=== PATIENT | female | born 1950 | race Caucasian/White ===

== ENCOUNTER 2017-03-30 19:35 | Observation (INO) | payer OTHER ==
[~2017-03-30] VITALS: Ht 162.6 cm; Wt 84.5 kg
[2017-03-30] MEDS ORDERED: SILVER NITR/POTASSIUM NITRATE APPLICATORS TOPICAL ONE (20:00)
[2017-03-30] MEDS ORDERED: OXYMETAZOLINE HCL 0.05% 15 ML NASAL SPRAY NASAL ONE (20:00)
[2017-03-30 20:21] LABS: HEMATOCRIT 32.3 % (35.0-46.0); MEAN CELL VOLUME 84.9 FL (80.0-100.0); MEAN CORPUSCULAR HEMOGLOBIN 28.6 PG (27.0-34.0); MEAN CORPUSCULAR HGB CONC 33.7 % (32.0-36.0); PLATELET COUNT 269 TH/MM3 (150-450); RED CELL DISTRIBUTION WIDTH 14.1 % (11.6-17.2); WHITE BLOOD COUNT 10.4 TH/MM3 (4.0-11.0)
[2017-03-30 20:22] LABS: HEMO FLAGS AUTO DIFF
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
[2017-03-30 20:28] LABS: POTASSIUM 3.7 MEQ/L (3.5-5.1)
[2017-03-30 20:33] LABS: BICARBONATE 23.6 MEQ/L (21.0-32.0)
[2017-03-30 20:39] LABS: APTT (PATIENT) 46.7 SEC (24.3-30.1)
[2017-03-30 20:40] LABS: INTERNATIONAL NORMALIZED RATIO 2.3 RATIO; PROTHROMBIN TIME - PATIENT 25.9 SEC (9.8-11.6)
[2017-03-30 20:44] LABS: BANDS 1 % (0-6); NEUTROPHIL # MANUAL DIFF 7.9 TH/MM3 (1.8-7.7); PLATELET ESTIMATE SMEAR NORMAL (NORMAL); PLATELET MORPHOLOGY NORMAL (NORMAL); POLYS (SEG NEUTROPHILS) 75 % (16-70); SCAN/DIFF FINAL DIFF MANUAL; WBC DIFF SAMPLE 100
[2017-03-30] MEDS ORDERED: COUM5TAB PO (20:50)
[2017-03-30] MEDS ORDERED: CLAR5TAB PO (20:53)
[2017-03-30] MEDS ORDERED: ACIP20TA6 PO (20:53)
[2017-03-30 20:55] VITALS: BP 131/79; PULSE 81; RESP 18; TEMP 100.2; O2SAT 97
[2017-03-30 21:00] VITALS: BP 131/79; PULSE 82; RESP 16; O2SAT 97
[2017-03-30] MEDS ORDERED: ONDANSETRON HCL 4 MG/2 ML VIAL IV PUSH ONE (21:00)
[2017-03-30] MEDS ORDERED: SODIUM CHLOR 0.9% 1000 ML INJ 1,000 ML IV ONE (21:45)
[2017-03-30 22:22] VITALS: BP 137/76; PULSE 92; RESP 18; O2SAT 98
[2017-03-30] MEDS ORDERED: KETOROLAC TROMETHAMINE 30 MG/ML (IVP) VIAL IV PUSH ONE (22:30)
[2017-03-30 22:40] LABS: BASOPHIL % 0.4 % (0.0-2.0); EOSINOPHIL # 0.1 TH/MM3 (0-0.4); EOSINOPHIL % 1.1 % (0.0-4.0); HEMATOCRIT 29.8 % (35.0-46.0); LYMPH % 10.6 % (9.0-44.0); LYMPHOCYTE # 1.2 TH/MM3 (1.0-4.8); MEAN CELL VOLUME 86.7 FL (80.0-100.0); MEAN CORPUSCULAR HEMOGLOBIN 28.8 PG (27.0-34.0); MEAN CORPUSCULAR HGB CONC 33.2 % (32.0-36.0); MONO % 8.5 % (0.0-8.0); NEUT % 79.4 % (16.0-70.0); PLATELET COUNT 208 TH/MM3 (150-450); RED BLOOD COUNT 3.43 MIL/MM3 (4.00-5.30); RED CELL DISTRIBUTION WIDTH 13.9 % (11.6-17.2); WHITE BLOOD COUNT 11.3 TH/MM3 (4.0-11.0)
[2017-03-30 22:41] LABS: HEMO FLAGS DIFF FINAL
[2017-03-30] MEDS ORDERED: SENNOSIDES 8.6 MG TAB PO PRN (23:15)
[2017-03-30] MEDS ORDERED: LACTULOSE SYRUP 20 GM/30 ML CUP PO PRN (23:15)
[2017-03-30] MEDS ORDERED: MAGNESIUM HYDROXIDE SUSP 30 ML CUP PO PRN (23:15)
[2017-03-30] MEDS ORDERED: BISACODYL 10 MG SUPP RECTAL PRN (23:15)
[2017-03-30] MEDS ORDERED: SODIUM CHLORIDE 0.9% FLUSH 10 ML FLUSH IV FLUSH PRN (23:15)
[2017-03-30] MEDS ORDERED: ONDANSETRON HCL 4 MG/2 ML VIAL IVP PRN (23:15)
[2017-03-30 23:26] VITALS: BP 152/93; PULSE 89; RESP 17; TEMP 98.9; O2SAT 98
[2017-03-30] MEDS: SODIUM CHLOR 0.9% 1000 ML INJ 1,000 ML IV SCH (23:42)
[2017-03-30] MEDS: PANTOPRAZOLE SODIUM 40 MG VIAL IV PUSH SCH (23:43)
[2017-03-31 01:19] VITALS: BP 130/86; PULSE 90; RESP 20; TEMP 98.6; O2SAT 96
[2017-03-31 04:00] VITALS: BP 125/79; PULSE 79; RESP 20; TEMP 98.5; O2SAT 99
[2017-03-31 07:27] LABS: AUTOMATED NEUTROPHIL # 6.6 TH/MM3 (1.8-7.7); BASOPHIL # 0.2 TH/MM3 (0-0.2); BASOPHIL % 1.8 % (0.0-2.0); EOSINOPHIL # 0.1 TH/MM3 (0-0.4); EOSINOPHIL % 1.2 % (0.0-4.0); HEMATOCRIT 25.1 % (35.0-46.0); LYMPHOCYTE # 1.6 TH/MM3 (1.0-4.8); MEAN CORPUSCULAR HEMOGLOBIN 29.2 PG (27.0-34.0); MEAN CORPUSCULAR HGB CONC 33.5 % (32.0-36.0); PLATELET COUNT 210 TH/MM3 (150-450); RED BLOOD COUNT 2.88 MIL/MM3 (4.00-5.30); RED CELL DISTRIBUTION WIDTH 13.9 % (11.6-17.2); WHITE BLOOD COUNT 9.5 TH/MM3 (4.0-11.0)
[2017-03-31 07:29] LABS: HEMO FLAGS DIFF FINAL
[2017-03-31 07:30] LABS: CHLORIDE 112 MEQ/L (98-107); POTASSIUM 3.6 MEQ/L (3.5-5.1); SODIUM (NA) 144 MEQ/L (136-145)
[2017-03-31 07:32] LABS: INTERNATIONAL NORMALIZED RATIO 2.3 RATIO; PROTHROMBIN TIME - PATIENT 26.6 SEC (9.8-11.6)
[2017-03-31 07:47] LABS: ALKALINE PHOSPHATASE 51 U/L (45-117); ALT (GPT) 16 U/L (10-53); ANION GAP 8 MEQ/L (5-15); AST (GOT) 18 U/L (15-37); BICARBONATE 23.8 MEQ/L (21.0-32.0); BLOOD UREA NITROGEN 10 MG/DL (7-18); GLOMERULAR FILTRATION RATE 91 ML/MIN (>89); TOTAL BILIRUBIN ADULT 0.7 MG/DL (0.2-1.0)
[2017-03-31 08:00] VITALS: BP 143/84; PULSE 91; RESP 21; TEMP 97; O2SAT 96
[2017-03-31] MEDS: DOCUSATE SODIUM 50 MG/SENNA 8.6 MG TAB PO SCH ×3 (08:54→21:56)
[2017-03-31] MEDS: SODIUM CHLORIDE 0.9% FLUSH 10 ML FLUSH IV FLUSH SCH ×2 (08:54→21:00)
[2017-03-31] MEDS: SODIUM CHLOR 0.9% 1000 ML INJ 1,000 ML IV SCH (09:15)
[2017-03-31 12:00] VITALS: BP 122/78; PULSE 77; RESP 20; TEMP 96.6; O2SAT 96
--- NOTE | 2017-03-31 12:41 | EKG ---
Date Performed: 03/30/2017 Time Performed: 20:53:22 PTAGE: 66 years EKG: Sinus rhythm NORMAL ECG NO PREVIOUS TRACING DOCTOR: Thom Meneses Interpretating Date/Time 03/31/2017 12:38:52
[2017-03-31] MEDS ORDERED: CEPH500C PO (12:51)
--- NOTE | 2017-03-31 13:15 | HHI.HP ---
[facility] Service [facility] Primary Care Physician Non-Staff Admission Diagnosis Epistaxis, symptomatic anemia Diagnoses: Chief Complaint: Epistaxis Travel History International Travel<30 Days: No Contact w/Intl Traveler <30 Da: No Traveled to Known Affected Are: No Past Family Social History Allergies: Coded Allergies: Codeine (Verified Allergy, Severe, Itching, 03/30/17) Egg Allergy (Verified Allergy, Severe, Nausea/Vomiting, 03/30/17) Reglan (Verified Allergy, Severe, Nausea/Vomiting, 03/30/17) Sulfa (Verified Allergy, Severe, Nausea/Vomiting, 03/30/17) Uncoded Allergies: narcotics (Allergy, Severe, Nausea/Vomiting, 03/30/17) Physical Exam Vital Signs Vital Signs Date Time Temp Pulse Resp B/P Pulse Ox O2 Delivery O2 Flow Rate FiO2 03/31/17 12:00 96.6 77 20 122/78 96 03/31/17 08:00 97.0 91 21 143/84 96 03/31/17 04:00 98.5 79 20 125/79 99 03/31/17 01:19 98.6 90 20 130/86 96 03/30/17 23:35 16 03/30/17 23:26 98.9 89 17 152/93 98 Room Air 03/30/17 22:22 92 18 137/76 98 Room Air 03/30/17 21:00 82 16 131/79 97 Room Air 03/30/17 20:55 100.2 81 18 131/79 97 Laboratory Laboratory Tests Test 03/30/17 03/30/17 03/31/17 20:00 22:25 07:09 White Blood Count 10.4 11.3 9.5 Red Blood Count 3.80 3.43 2.88 Hemoglobin 10.9 9.9 8.4 Hematocrit 32.3 29.8 25.1 Mean Corpuscular Volume 84.9 86.7 87.0 Mean Corpuscular Hemoglobin 28.6 28.8 29.2 Mean Corpuscular Hemoglobin 33.7 33.2 33.5 Concent Red Cell Distribution Width 14.1 13.9 13.9 Platelet Count 269 208 210 Mean Platelet Volume 8.0 7.3 7.6 Neutrophils (%) (Auto) 79.4 70.0 Lymphocytes (%) (Auto) 10.6 17.0 Monocytes (%) (Auto) 8.5 10.0 Eosinophils (%) (Auto) 1.1 1.2 Basophils (%) (Auto) 0.4 1.8 Neutrophils # (Auto) 9.0 6.6 Lymphocytes # (Auto) 1.2 1.6 Monocytes # (Auto) 1.0 1.0 Eosinophils # (Auto) 0.1 0.1 Basophils # (Auto) 0.0 0.2 CBC Comment AUTO DIFF DIFF FINAL DIFF FINAL Differential Total Cells 100 Counted Neutrophils % (Manual) 75 Band Neutrophils % 1 Lymphocytes % 20 Monocytes % 4 Neutrophils # (Manual) 7.9 Differential Comment FINAL DIFF MANUAL Platelet Estimate NORMAL Platelet Morphology Comment NORMAL Red Cell Morphology Comment NORMAL Hematology Comments Prothrombin Time 25.9 26.6 Prothromb Time International 2.3 2.3 Ratio Activated Partial 46.7 Thromboplast Time Sodium Level 141 144 Potassium Level 3.7 3.6 Chloride Level 108 112 Carbon Dioxide Level 23.6 23.8 Anion Gap 9 8 Blood Urea Nitrogen 11 10 Creatinine 0.68 0.65 Estimat Glomerular Filtration 86 91 Rate Random Glucose 100 86 Calcium Level 8.8 7.5 Total Bilirubin 0.7 Aspartate Amino Transf 18 (AST/SGOT) Alanine Aminotransferase 16 (ALT/SGPT) Alkaline Phosphatase 51 Total Protein 5.7 Albumin 2.8 Result Diagram: 03/31/17 0709 03/31/17 0709 Physician Certification Order for Inpatient Services The services are ordered in accordance with Medicare regulations or non- Medicare payer requirements, as applicable. In the case of services not specified as inpatient-only, they are appropriately provided as inpatient services in accordance with the 2-midnight benchmark. days is the estimated time the patient will need to remain in the hospital, assuming treatment plan goals are met and no additional complications. Raymond Ruvalcaba MD Mar 31, 2017 13:15 Monocytes (%) (Auto) 8.5 10.0 Eosinophils (%) (Auto) 1.1 1.2 Basophils (%) (Auto) 0.4 1.8 Neutrophils # (Auto) 9.0 6.6 Lymphocytes # (Auto) 1.2 1.6 Monocytes # (Auto) 1.0 1.0 Eosinophils # (Auto) 0.1 0.1 Basophils # (Auto) 0.0 0.2 CBC Comment AUTO DIFF DIFF FINAL DIFF FINAL Differential Total Cells 100 Counted Neutrophils % (Manual) 75 Band Neutrophils % 1 Lymphocytes % 20 Monocytes % 4 Neutrophils # (Manual) 7.9 Differential Comment FINAL DIFF MANUAL Platelet Estimate NORMAL Platelet Morphology Comment NORMAL Red Cell Morphology Comment NORMAL Hematology Comments Prothrombin Time 25.9 26.6 Prothromb Time International 2.3 2.3 Ratio Activated Partial 46.7 Thromboplast Time Sodium Level 141 144 Potassium Level 3.7 3.6 Chloride Level 108 112 Carbon Dioxide Level 23.6 23.8 Anion Gap 9 8 Blood Urea Nitrogen 11 10 Creatinine 0.68 0.65 Estimat Glomerular Filtration 86 91 Rate Random Glucose 100 86 Calcium Level 8.8 7.5 Total Bilirubin 0.7 Aspartate Amino Transf 18 (AST/SGOT) Alanine Aminotransferase 16 (ALT/SGPT) Alkaline Phosphatase 51 Total Protein 5.7 Albumin 2.8 Result Diagram: 03/31/1770803/31/17 0709 Assessment and Plan Problem List: (1) Epistaxis ICD Code: R04.0 Status: Acute (2) Syncope ICD Code: R55 Status: Resolved (3) H/O deep venous thrombosis ICD Code: Z86.718 Status: Resolved (4) Facial fracture ICD Code: S02.92XA Status: Acute (5) Acute blood loss anemia ICD Code: D62 Status: Acute Code Status Full code Discussed Condition With Patient, Physician Certification Order for Inpatient Services The services are ordered in accordance with Medicare regulations or non- Medicare payer requirements, as applicable. In the case of services not specified as inpatient-only, they are appropriately provided as inpatient services in accordance with the 2-midnight benchmark. days is the estimated time the patient will need to remain in the hospital, assuming treatment plan goals are met and no additional complications. Problem Qualifiers (1) Facial fracture: Qualified Code: S02.2XXD - Closed fracture of nasal bone with routine healing, subsequent encounter Raymond Ruvalcaba MD Mar 31, 2017 13:15 Physician Certification Order for Inpatient Services The services are ordered in accordance with Medicare regulations or non- Medicare payer requirements, as applicable. In the case of services not specified as inpatient-only, they are appropriately provided as inpatient services in accordance with the 2-midnight benchmark. days is the estimated time the patient will need to remain in the hospital, assuming treatment plan goals are met and no additional complications. Problem Qualifiers (1) Facial fracture: Qualified Code: S02.2XXD - Closed fracture of nasal bone with routine healing, subsequent encounter Raymond Ruvalcaba MD Mar 31, 2017 13:15 Continue PPI for GERD Continue Clarinex for sinusitis Continue cephalexin to complete suggested seven-day treatment after discharge. We'll place on liquid diet for treatment of facial fractures as ordered by oral surgeon at the [facility]. SCDs for DVT prophylaxis Code Status Full code Discussed Condition With Patient, Physician Certification Order for Inpatient Services The services are ordered in accordance with Medicare regulations or non- Medicare payer requirements, as applicable. In the case of services not specified as inpatient-only, they are appropriately provided as inpatient services in accordance with the 2-midnight benchmark. days is the estimated time the patient will need to remain in the hospital, assuming treatment plan goals are met and no additional complications. Problem Qualifiers (1) Facial fracture: Qualified Code: S02.2XXD - Closed fracture of nasal bone with routine healing, subsequent encounter Raymond Ruvalcaba MD Mar 31, 2017 13:15
--- NOTE | 2017-03-31 14:31 | RADRPT ---
EXAM DATE/TIME: 03/31/2017 13:36 [facility] COMPARISON: No previous studies available for comparison. INDICATIONS : Bialteral leg swelling. MEDICAL HISTORY : Gastroesophageal reflux disease. Prolapsed bladder. DVT. SURGICAL HISTORY : Hysterectomy. Left knee replacement. Hip replacement. Spinal fusion. Left meniscus. ENCOUNTER: Initial ACUITY: 1 day PAIN SCORE: 4/10 LOCATION: Bilateral leg. TECHNIQUE: Venous ultrasound of the left and right leg was performed from the inguinal ligament to the proximal calf. Real-time, color Doppler and spectral tracing, compression and augmentation techniques were us ed. FINDINGS: RIGHT LEG: There is normal compressibility of the deep venous system from the inguinal region to the proximal ca lf. No echogenic clot is seen in the lumen of the common femoral, femoral, popliteal, and posterior tibial veins. There is a normal response of the venous system to proximal and distal augmentation an d respiration. LEFT LEG: There is normal compressibility of the deep venous system from the inguinal region to the proximal ca lf. No echogenic clot is seen in the lumen of the common femoral, femoral, popliteal, and posterior tibial veins. There is a normal response of the venous system to proximal and distal augmentation an d respiration. CONCLUSION: Normal examination. Natasha Edmondson MD on March 31, 2017 at 14:29 Board Certified Radiologist. This report was verified electronically.
[2017-03-31] MEDS: ACETAMINOPHEN 325 MG TAB PO PRN ×2 (15:12→22:04)
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
[2017-03-31 16:00] VITALS: BP 122/86; PULSE 75; RESP 20; TEMP 97.7; O2SAT 96
[2017-03-31] MEDS: PANTOPRAZOLE SODIUM 40 MG VIAL IV PUSH SCH (16:26)
[2017-03-31 20:00] VITALS: BP 137/79; PULSE 75; RESP 18; TEMP 97.1; O2SAT 97
[2017-04-01] VITALS: BP 142/88; PULSE 77; RESP 20; TEMP 96.8; O2SAT 94
[2017-04-01] MEDS: ACETAMINOPHEN 325 MG TAB PO PRN ×3 (04:37→16:24)
[2017-04-01 07:12] LABS: MEAN CELL VOLUME 86.4 FL (80.0-100.0); MEAN CORPUSCULAR HGB CONC 33.6 % (32.0-36.0); PLATELET COUNT 245 TH/MM3 (150-450); RED BLOOD COUNT 3.12 MIL/MM3 (4.00-5.30); REVIEW FLAG FINAL; WHITE BLOOD COUNT 8.2 TH/MM3 (4.0-11.0)
[2017-04-01 07:25] LABS: POTASSIUM 3.5 MEQ/L (3.5-5.1)
[2017-04-01 07:28] LABS: BICARBONATE 25.2 MEQ/L (21.0-32.0); INTERNATIONAL NORMALIZED RATIO 2.3 RATIO; PROTHROMBIN TIME - PATIENT 26.8 SEC (9.8-11.6)
[2017-04-01 08:17] VITALS: BP 141/83; PULSE 71; RESP 17; TEMP 96.4; O2SAT 97
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
[2017-04-01] MEDS: SODIUM CHLORIDE 0.9% FLUSH 10 ML FLUSH IV FLUSH SCH (09:00)
[2017-04-01] MEDS ORDERED: CEPH500C PO (09:16)
[2017-04-01] MEDS: DOCUSATE SODIUM 50 MG/SENNA 8.6 MG TAB PO SCH (10:06)
[2017-04-01 12:27] VITALS: BP 138/82; PULSE 71; RESP 19; TEMP 97.2; O2SAT 95
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
[2017-04-01 16:26] VITALS: BP 138/82; PULSE 78; RESP 19; TEMP 97; O2SAT 94
[2017-04-01] MEDS ORDERED: PANTOPRAZOLE SOD 40 MG DELAYED RELEASE TAB PO SCH (22:00)
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
== END 2017-04-01 19:12 | disposition home or self-care (01) ==
LOC: PHED 19:35 → PHEDA 22:59 → PH3B 03-31 00:58
PROVIDERS: ADMIT Hospitalist; ATTEND Hospitalist
DX: R04.0 Epistaxis (principal); D62 Acute posthemorrhagic anemia; R55 Syncope and collapse; S02.2XXD Fracture of nasal bones, subsequent encounter for fracture with routine healing; R53.1 Weakness; R42 Dizziness and giddiness; M79.89 Other specified soft tissue disorders; K21.9 Gastro-esophageal reflux disease without esophagitis; Z86.718 Personal history of other venous thrombosis and embolism; Z79.01 Long term (current) use of anticoagulants; Z98.1 Arthrodesis status; Z96.641 Presence of right artificial hip joint; Z96.652 Presence of left artificial knee joint; V97.0 Occupant of aircraft injured in other specified air transport accidents
CPT/HCPCS: 30901; 80048; 80053; 85007; 85025; 85027; 85610; 85730; 93005; 93970; 96374; 96375; 99285; C9113; G0378; J1885; J2405; J7030